=== PATIENT | male | born 1960 | race Caucasian/White ===

== ENCOUNTER 2016-10-11 21:05 | Emergency (ER) | payer SELFPAY ==
[~2016-10-11] VITALS: Ht 182.9 cm; Wt 81.6 kg
--- NOTE | 2016-10-11 22:56 | NUR ---
PATIENT TO ED DT "DRUNK AND WENT TO AA MEETING; FELL OVER THERE"; RT FOREHEAD HEMATOMA. PATIENT IS AWAKE, HOWEVER APPEARS ALTERED. RESPONSE TO VERBAL STIMULI. GOWNED PT AND PLACED ON TELE MONITOR
--- NOTE | 2016-10-11 23:40 | NUR ---
REPORT RECIVED FROM TERRENCE GOODMAN, PT IN BED, IV PLACED, LABS DRAWN, PT ON MONITOR, WILL CONTINUE TO MONITOR.
--- NOTE | 2016-10-12 00:01 | NUR ---
PT TO CT
[2016-10-12 00:09] LABS: BASOPHILS % (AUTO) 0.6 % (0.0-2.0); EOSINOPHILS # (AUTO) 0.2 /CMM (0.0-0.7); EOSINOPHILS % (AUTO) 2.5 % (0.0-6.0); HEMATOCRIT 49 % (39-51); HEMOGLOBIN 16.7 g/dL (13.5-17.5); LYMPHOCYTES # (AUTO) 1.7 /CMM (0.8-4.8); MEAN CORPUSCULAR HEMOGLOBIN 31 PG (26.0-33.0); MEAN CORPUSCULAR HGB CONC 34 g/dl (31.0-36.0); MEAN CORPUSCULAR VOLUME 92 fL (80-96); MONOCYTES # (AUTO) 0.7 /CMM (0.1-1.30); MONOCYTES % (AUTO) 8.2 % (2.0-12.0); NEUTROPHILS # (AUTO) 5.8 /CMM (1.8-8.9); NEUTROPHILS % (AUTO) 68.7 % (43.0-81.0); PLATELET COUNT (AUTO) 379 /CMM (150-450); RDW COEFFICIENT OF VARIATION 13.4 (11.5-15.0); WHITE BLOOD COUNT (AUTO) 8.4 K/uL (4.3-11.0)
[2016-10-12 00:19] LABS: INR 0.89 (0.87-1.13); PROTHROMBIN TIME 9.4 SECS (9.5-12.7)
[2016-10-12 00:25] LABS: BILIRUBIN,DIRECT 0.1 mg/dL (0.0-0.2); BILIRUBIN,TOTAL 0.2 mg/dL (0.2-1.0); CALCIUM, SERUM 8.6 mg/dL (8.5-10.1); CREATININE 0.7 mg/dL (0.6-1.3); POTASSIUM 3.4 mmol/L (3.5-5.1); TOTAL PROTEIN, SERUM 7.7 g/dL (6.4-8.2)
--- NOTE | 2016-10-12 03:44 | NUR ---
PT IN BED ON MONITOR, PT SLEEPING, WILL CONTINUE TO MONITOR.
--- NOTE | 2016-10-12 05:04 | NUR ---
PT ON MONITOR, PT SLEEPING IN NO APPARENT DISTRESS, MD PEDRO MADE AWARE WILL CONTINUE TO MONITOR.
[2016-10-12 06:30] VITALS: BP 109/68
--- NOTE | 2016-10-12 06:32 | NUR ---
IV removed. Catheter intact and site benign. Pressure and 4x4 applied to site. No bleeding noted.Patient given written and verbal discharge instructions. Patient verbalizes understanding of instructions. Patient is ambulatory with steady gait. Refuses offer of correction placement. Patient given list of available shelters in surrounding area. VSS, NAD noted on DC. Denies complaint on DC.
== END 2016-10-12 06:33 | disposition home or self-care (01) ==
LOC: ER 21:07
DX: S00.83XA Contusion of other part of head, initial encounter (principal); F10.129 Alcohol abuse with intoxication, unspecified; W01.198A Fall on same level from slipping, tripping and stumbling with subsequent striking against other object, initial encounter; Y92.89 Other specified places as the place of occurrence of the external cause; Y93.89 Activity, other specified; Y99.8 Other external cause status
CPT/HCPCS: 36415 ×2; 70450; 72125; 80048; 80076; 82962 ×2; 85025; 85730; 86850; 99285; A4606; G0480; Z7610

== ENCOUNTER 2018-08-10 20:12 | Emergency (ER) | payer BC ==
[~2018-08-10] VITALS: Ht 170.2 cm; Wt 68.0 kg
[2018-08-10 20:20] VITALS: BP 152/91
[2018-08-10] MEDS ORDERED: HYDROCODONE/APAP 5/325MG 1 EACH TABLET ONE (20:56)
[2018-08-10] MEDS ORDERED: HYDROCODONE/APAP 5/325MG 1 EACH TABLET PO ONE (21:00)
[2018-08-10] MEDS ORDERED: IBUPROFEN 600 MG TABLET PO ONE ×2 (21:00)
== END 2018-08-10 21:32 | disposition home or self-care (01) ==
LOC: ER 20:17
DX: S52.571A Other intraarticular fracture of lower end of right radius, initial encounter for closed fracture (principal); Z90.89 Acquired absence of other organs; Z88.8 Allergy status to other drugs, medicaments and biological substances; W22.8XXA Striking against or struck by other objects, initial encounter; Y93.31 Activity, mountain climbing, rock climbing and wall climbing; Y92.89 Other specified places as the place of occurrence of the external cause; Y99.8 Other external cause status
CPT/HCPCS: 73110